=== PATIENT | female | born 1975 | race Caucasian/White ===

== ENCOUNTER 2019-09-13 15:39 | Inpatient (IN) | payer BC ==
[~2019-09-13] VITALS: Ht 175.3 cm; Wt 81.6 kg
[2019-09-13] VITALS (8 sets, daily range): BP systolic 111–144; BP diastolic 66–78
--- NOTE | 2019-09-13 15:51 | Emergency Room Report ---
History of Present Illness General Chief Complaint: abdominal pain Source: Patient Present Illness HPI Patient is a 43-year-old female presents after increased lower abdominal pain. Acute onset of symptoms. 48 hours with the pain. Denies any nausea or vomiting. Pain had worsened gradually over time. Prior history of C- section.Pain is worse with ambulation and movement. Severe pain. Patient attempted acupuncture without any improvement.Patient denies being . Allergies: Coded Allergies: No Known Allergies (Unverified , 09/13/19) Patient History Past Medical History: see triage record Reviewed Nursing Documentation: PMH: Agreed; PSxH: Agreed Review of Systems All Other Systems: negative except mentioned in HPI Physical Exam Sp02 EP Interpretation: reviewed, normal General Appearance: normal inspection, well appearing, no apparent distress, alert, GCS 15 Head: atraumatic ENT: normal ENT inspection, hearing grossly normal, normal voice Neck: normal inspection, full range of motion, supple, no bony tend Respiratory: normal inspection, lungs clear, normal breath sounds, no respiratory distress, no retraction, no wheezing Cardiovascular #1: regular rate, rhythm, no edema Gastrointestinal: normal inspection, normal bowel sounds, soft, no guarding, no hernia, tenderness - Guarding in the right lower quadrant, positive Rovsing sign Genitourinary: no CVA tenderness Musculoskeletal: normal inspection, back normal, normal range of motion Neurologic: alert, motor strength/tone normal, licensed insurance agent III-XII nml as tested, oriented x3, responsive, speech normal, normal inspection Psychiatric: normal inspection, judgement/insight normal, mood/affect normal Skin: other - bruising to right side of abdomen Medical Decision Making Diagnostic Impression: Primary Impression: Acute appendicitis ER Course Patient presented for abdominal pain. Differential diagnoses included ischemic bowel, appendicitis, perforated viscus, abdominal aortic aneurysm, inferior myocardial infarction, viral gastroenteritis among others.Because patient's complexity imaging studies, and laboratory testing ordered. White blood count was Noted to be elevated. Patient was given IV pain medications as well as antibiotic. CT of the abdomen pelvis showed performed at radiology center showed 10 mm appendix with inflammatory changes see radiology report for full details. Dr. Arroyo was contacted for surgical consult. Dr. Olvera was contacted for [facility] for inpatient management. Labs Test 09/13/19 16:00 White Blood Count 20.8 K/UL (4.8-10.8) Red Blood Count 4.73 M/UL (4.20-5.40) Hemoglobin 14.2 G/DL (12.0-16.0) Hematocrit 42.4 % (37.0-47.0) Mean Corpuscular Volume 90 FL (80-99) Mean Corpuscular Hemoglobin 29.9 PG (27.0-31.0) Mean Corpuscular Hemoglobin Concent 33.4 G/DL (32.0-36.0) Red Cell Distribution Width 13.2 % (11.6-14.8) Platelet Count 282 K/UL (150-450) Mean Platelet Volume 7.4 FL (6.5-10.1) Neutrophils (%) (Auto) % (45.0-75.0) Lymphocytes (%) (Auto) % (20.0-45.0) Monocytes (%) (Auto) % (1.0-10.0) Eosinophils (%) (Auto) % (0.0-3.0) Basophils (%) (Auto) % (0.0-2.0) Differential Total Cells Counted 100 Neutrophils % (Manual) 89 % (45-75) Lymphocytes % (Manual) 7 % (20-45) Monocytes % (Manual) 4 % (1-10) Eosinophils % (Manual) 1 % (0-3) Basophils % (Manual) 0 % (0-2) Band Neutrophils 0 % (0-8) Platelet Estimate Adequate Platelet Morphology Normal Red Blood Cell Morphology Normal Prothrombin Time 10.1 SEC (9.30-11.50) Prothromb Time International Ratio 0.9 (0.9-1.1) Activated Partial Thromboplast Time 31 SEC (23-33) Urine HCG, Qualitative Negative (NEGATIVE) Sodium Level 137 MMOL/L (136-145) Potassium Level 4.1 MMOL/L (3.5-5.1) Chloride Level 100 MMOL/L (98-107) Carbon Dioxide Level 27 MMOL/L (21-32) Anion Gap 10 mmol/L (5-15) Blood Urea Nitrogen 5 mg/dL (7-18) Creatinine 0.9 MG/DL (0.55-1.30) Estimat Glomerular Filtration Rate > 60 mL/min (>60) Glucose Level 115 MG/DL (74-106) Calcium Level 9.0 MG/DL (8.5-10.1) Total Bilirubin 0.6 MG/DL (0.2-1.0) Aspartate Amino Transf (AST/SGOT) 14 U/L (15-37) Alanine Aminotransferase (ALT/SGPT) 23 U/L (12-78) Alkaline Phosphatase 51 U/L (46-116) Total Protein 7.7 G/DL (6.4-8.2) Albumin 4.1 G/DL (3.4-5.0) Globulin 3.6 g/dL Albumin/Globulin Ratio 1.1 (1.0-2.7) Status: improved Disposition: ADMITTED INPATIENT Condition: Stable Christian Gutierrez MD Sep 13, 2019 15:51
[2019-09-13] MEDS ORDERED: Morphine Sulfate 4mg/ml Inj (IV USE ONLY) IVP ONE (16:00)
[2019-09-13] MEDS ORDERED: Piperacillin/Tazobactam 3.375 GM in NS 110 ML IVPB ONE (16:00)
[2019-09-13] MEDS ORDERED: Bupivacaine w/Epi 0.5% 30ml Vial INJ ONE (16:17)
[2019-09-13] MEDS ORDERED: Succinylcholine 20mg/ml 10ml vial ONE (16:18)
[2019-09-13] MEDS ORDERED: Rocuronium Bromide 100mg/10ml Inj IV ONE (16:18)
[2019-09-13] MEDS ORDERED: Bacitracin 50000 Units Vial ONE (16:18)
[2019-09-13 16:24] LABS: HEMATOCRIT 42.4 % (37.0-47.0); HEMOGLOBIN 14.2 G/DL (12.0-16.0); MEAN CORPUSCULAR VOLUME 90 FL (80-99); PLATELET COUNT 282 K/UL (150-450); RED BLOOD COUNT 4.73 M/UL (4.20-5.40); RED CELL DISTRIBUTION WIDTH 13.2 % (11.6-14.8); WHITE BLOOD COUNT 20.8 K/UL (4.8-10.8)
[2019-09-13] MEDS ORDERED: CYTOMEL5 MCG ORAL (16:29)
[2019-09-13] MEDS ORDERED: SYNTHROID75 MCG ORAL (16:29)
[2019-09-13 16:35] LABS: ANION GAP 10 mmol/L (5-15); BLOOD UREA NITROGEN 5 mg/dL (7-18); CARBON DIOXIDE 27 MMOL/L (21-32); CHLORIDE 100 MMOL/L (98-107); CREATININE 0.9 MG/DL (0.55-1.30); POTASSIUM 4.1 MMOL/L (3.5-5.1); SODIUM 137 MMOL/L (136-145)
[2019-09-13 16:37] LABS: INR 0.9 (0.9-1.1)
[2019-09-13 16:39] LABS: ALANINE AMINOTRANSFERASE 23 U/L (12-78); ALBUMIN 4.1 G/DL (3.4-5.0); ALBUMIN/GLOBULIN RATIO 1.1 (1.0-2.7); ALKALINE PHOSPHATASE 51 U/L (46-116); ASPARTATE AMINO TRANSFERASE 14 U/L (15-37); BILIRUBIN,TOTAL 0.6 MG/DL (0.2-1.0)
--- NOTE | 2019-09-13 16:44 | Consultation ---
History of Present Illness General Date patient seen: Sep 13, 2019 Reason for Hospitalization: Abdominal Pain Present Illness HPI 43 year old female otherwise healthy presented with abdominal pain. states friday morning began to have generalized cramping abdominal pain that woke her up. improved and thought it was resolving but pain worse today. went to PCP for evaluation and differential of abdominal pain considered in detail therefore CT was performed outpatient. PCP astutely identified appendicitis and she was instructed to go to ED for evaluation and surgical care. came to [facility] ED. no n/v/f/c. wbc 20k. surgery called to evaluate. discussed with PCP Dr. Samy Cool. discussed with ED. plan management discussed with hospitalist. hx cs ection for twins which are now 5yo. Allergies: Coded Allergies: No Known Allergies (Unverified , 09/13/19) COVID-19 Screening Contact w/high risk pt: No Recent Travel to affected area: No Experienced COVID-19 symptoms?: No Medication History Scheduled Levothyroxine Sodium* (Synthroid*), 75 MCG ORAL DAILY, (Reported) Liothyronine Sodium* (Cytomel*), 5 MCG ORAL DAILY, (Reported) Patient History History Provided By: Patient, Medical Record, PMD Healthcare decision maker N Resuscitation status Advanced Directive on File Past Medical/Surgical History Past Medical/Surgical History: (1) Acute appendicitis Review of Systems Review of Symptoms General ROS: no weight loss or fever Psychological ROS: no depression or mood changes, no memory loss Ophthalmic ROS: no visual changes or eye irritation ENT ROS: no nasal congestion, hearing loss, dizziness Allergy and Immunology ROS: no allergic symptoms or urticaria Hematological and Lymphatic ROS: no swollen glands, unusual bleeding or bruising Endocrine ROS: no polyuria, polydipsia, weight changes, temperature intolerance Respiratory ROS: no cough, shortness of breath, or wheezing Cardiovascular ROS: no chest pain or dyspnea on exertion Gastrointestinal ROS: ++ abdominal pain, no bright red blood in stool. Musculoskeletal ROS: no myalgias or arthralgias Neurological ROS: no TIA or stroke symptoms Dermatological ROS: no new or changing skin lesions, rashes or pruritis Physical Exam Physical Exam General appearance: alert, cooperative, no distress, appears stated age Head: Normocephalic, without obvious abnormality, atraumatic Eyes: conjunctivae/corneas clear. PERRL, EOM's intact. Fundi benign Throat: Lips, mucosa, and tongue normal. Teeth and gums normal Neck: supple, symmetrical, trachea midline, no adenopathy, thyroid: not enlarged, symmetric, no tenderness/mass/nodules, no carotid bruit and no JVD Lungs: clear to auscultation bilaterally Heart: regular rate and rhythm, S1, S2 normal, no murmur, click, rub or gallop Abdomen: soft, RLQ tender. Bowel sounds normal. No masses, no organomegaly Extremities: extremities normal, atraumatic, no cyanosis or edema Pulses: 2+ and symmetric Skin: Skin color, texture, turgor normal. No rashes or lesions Neurologic: Grossly normal Last 24 Hour Vital Signs Date Time Temp Pulse Resp B/P (MAP) Pulse Ox O2 Delivery O2 Flow Rate FiO2 09/13/19 15:57 110 18 Room Air 09/13/19 15:57 98.2 18 118/78 99 Room Air 09/13/19 15:50 98.2 110 18 118/78 (91) 99 Room Air Laboratory Tests Test 09/13/19 16:00 White Blood Count 20.8 K/UL (4.8-10.8) H Red Blood Count 4.73 M/UL (4.20-5.40) Hemoglobin 14.2 G/DL (12.0-16.0) Hematocrit 42.4 % (37.0-47.0) Mean Corpuscular Volume 90 FL (80-99) Mean Corpuscular Hemoglobin 29.9 PG (27.0-31.0) Mean Corpuscular Hemoglobin Concent 33.4 G/DL (32.0-36.0) Red Cell Distribution Width 13.2 % (11.6-14.8) Platelet Count 282 K/UL (150-450) Mean Platelet Volume 7.4 FL (6.5-10.1) Neutrophils (%) (Auto) % (45.0-75.0) Lymphocytes (%) (Auto) % (20.0-45.0) Monocytes (%) (Auto) % (1.0-10.0) Eosinophils (%) (Auto) % (0.0-3.0) Basophils (%) (Auto) % (0.0-2.0) Differential Total Cells Counted 100 Neutrophils % (Manual) 89 % (45-75) H Lymphocytes % (Manual) 7 % (20-45) L Monocytes % (Manual) 4 % (1-10) Eosinophils % (Manual) 1 % (0-3) Basophils % (Manual) 0 % (0-2) Band Neutrophils 0 % (0-8) Platelet Estimate Adequate Platelet Morphology Normal Red Blood Cell Morphology Normal Prothrombin Time 10.1 SEC (9.30-11.50) Prothromb Time International Ratio 0.9 (0.9-1.1) Activated Partial Thromboplast Time 31 SEC (23-33) Urine HCG, Qualitative Negative (NEGATIVE) Sodium Level 137 MMOL/L (136-145) Potassium Level 4.1 MMOL/L (3.5-5.1) Chloride Level 100 MMOL/L (98-107) Carbon Dioxide Level 27 MMOL/L (21-32) Anion Gap 10 mmol/L (5-15) Blood Urea Nitrogen 5 mg/dL (7-18) L Creatinine 0.9 MG/DL (0.55-1.30) Estimat Glomerular Filtration Rate > 60 mL/min (>60) Glucose Level 115 MG/DL (74-106) H Calcium Level 9.0 MG/DL (8.5-10.1) Total Bilirubin 0.6 MG/DL (0.2-1.0) Aspartate Amino Transf (AST/SGOT) 14 U/L (15-37) L Alanine Aminotransferase (ALT/SGPT) 23 U/L (12-78) Alkaline Phosphatase 51 U/L (46-116) Total Protein 7.7 G/DL (6.4-8.2) Albumin 4.1 G/DL (3.4-5.0) Globulin 3.6 g/dL Albumin/Globulin Ratio 1.1 (1.0-2.7) Height (Feet): 5 Height (Inches): 9.00 Weight (Pounds): 180 Assessment/Plan Problem List: (1) Acute appendicitis Assessment & Plan: 43F with acute appendicitis afebrile HD stable leukocytosis 20k CT reviewed and consistent with acute uncomplicated appy exam with RLQ focal tenderness and rebound. npo iv fluids iv abx consent rapid COVID to OR for lap vs open appy thank you ICD Codes: K35.80 - Unspecified acute appendicitis SNOMED: [id number] Carlos Arroyo Sep 13, 2019 16:44
--- NOTE | 2019-09-13 16:45 | Pre-Procedure Note/Attestation ---
Pre-Procedure Note/Attestation Complete Prior to Procedure Procedure Narrative: laparoscopic appendectomy possible open Indications for Procedure Pre-Operative Diagnosis: acute appendicitis Attestation I attest that I discussed the nature of the procedure; its benefits; risks and complications; and alternatives (and the risks and benefits of such alternatives ), prior to the procedure, with the patient (or the patient's legal circulation sales representative). I attest that, if there was a reasonable possibility of needing a blood transfusion, the patient (or the patient's legal circulation sales representative) was given the [facility] standardized written summary, pursuant to the Aditya Mike Blood Safety Act ([place] Health and Safety Code # 1645, as amended). I attest that I re-evaluated the patient just prior to the surgery and that there has been no change in the patient's H&P, except as documented below: Carlos Arroyo Sep 13, 2019 16:45
--- NOTE | 2019-09-13 16:58 | History and Physical ---
History of Present Illness General Date patient seen: Sep 13, 2019 Time patient seen: 15:52 Reason for Hospitalization: Abdominal Pain Present Illness HPI 43-year-old female with past medical history of , D&C, presents for diffuse abdominal pain described as sharp 10 out of 10 pain that began early Friday morning. Pain has continued to worsen. Patient was imaged with a CT scan at outside facility that shows evidence of appendicitis, no free fluid in the pelvis noted, ovarian cyst noted. Liver 12 cm. Patient admits to nausea no vomiting, no diarrhea. Patient also denies fevers, chills, cough, shortness of breath. In regards to evaluation for medical clearance, patient states that she was active prior to presentation. Patient was able to exercise, go upstairs, without any shortness of breath or chest pain. Patient denies any prior history of asthma, diabetes, hypertension, smoking, COPD. Patient also denies any adverse reactions to anesthesia. Surgeries none Medications none Family history: Patient admits to heart disease in her uncle Social history: 2 twins, recently per report Allergies: Coded Allergies: No Known Allergies (Unverified , 09/13/19) COVID-19 Screening Contact w/high risk pt: No Recent Travel to affected area: No Experienced COVID-19 symptoms?: No Medication History Scheduled Levothyroxine Sodium* (Synthroid*), 75 MCG ORAL DAILY, (Reported) Liothyronine Sodium* (Cytomel*), 5 MCG ORAL DAILY, (Reported) Patient History Healthcare decision maker N Resuscitation status Advanced Directive on File Review of Systems All Other Systems: negative except mentioned in HPI Physical Exam Last 24 Hour Vital Signs Date Time Temp Pulse Resp B/P (MAP) Pulse Ox O2 Delivery O2 Flow Rate FiO2 09/13/19 15:57 110 18 Room Air 09/13/19 15:57 98.2 18 118/78 99 Room Air 09/13/19 15:50 98.2 110 18 118/78 (91) 99 Room Air Laboratory Tests Test 09/13/19 16:00 White Blood Count 20.8 K/UL (4.8-10.8) H Red Blood Count 4.73 M/UL (4.20-5.40) Hemoglobin 14.2 G/DL (12.0-16.0) Hematocrit 42.4 % (37.0-47.0) Mean Corpuscular Volume 90 FL (80-99) Mean Corpuscular Hemoglobin 29.9 PG (27.0-31.0) Mean Corpuscular Hemoglobin Concent 33.4 G/DL (32.0-36.0) Red Cell Distribution Width 13.2 % (11.6-14.8) Platelet Count 282 K/UL (150-450) Mean Platelet Volume 7.4 FL (6.5-10.1) Neutrophils (%) (Auto) % (45.0-75.0) Lymphocytes (%) (Auto) % (20.0-45.0) Monocytes (%) (Auto) % (1.0-10.0) Eosinophils (%) (Auto) % (0.0-3.0) Basophils (%) (Auto) % (0.0-2.0) Differential Total Cells Counted 100 Neutrophils % (Manual) 89 % (45-75) H Lymphocytes % (Manual) 7 % (20-45) L Monocytes % (Manual) 4 % (1-10) Eosinophils % (Manual) 1 % (0-3) Basophils % (Manual) 0 % (0-2) Band Neutrophils 0 % (0-8) Platelet Estimate Adequate Platelet Morphology Normal Red Blood Cell Morphology Normal Prothrombin Time 10.1 SEC (9.30-11.50) Prothromb Time International Ratio 0.9 (0.9-1.1) Activated Partial Thromboplast Time 31 SEC (23-33) Urine HCG, Qualitative Negative (NEGATIVE) Sodium Level 137 MMOL/L (136-145) Potassium Level 4.1 MMOL/L (3.5-5.1) Chloride Level 100 MMOL/L (98-107) Carbon Dioxide Level 27 MMOL/L (21-32) Anion Gap 10 mmol/L (5-15) Blood Urea Nitrogen 5 mg/dL (7-18) L Creatinine 0.9 MG/DL (0.55-1.30) Estimat Glomerular Filtration Rate > 60 mL/min (>60) Glucose Level 115 MG/DL (74-106) H Calcium Level 9.0 MG/DL (8.5-10.1) Total Bilirubin 0.6 MG/DL (0.2-1.0) Aspartate Amino Transf (AST/SGOT) 14 U/L (15-37) L Alanine Aminotransferase (ALT/SGPT) 23 U/L (12-78) Alkaline Phosphatase 51 U/L (46-116) Total Protein 7.7 G/DL (6.4-8.2) Albumin 4.1 G/DL (3.4-5.0) Globulin 3.6 g/dL Albumin/Globulin Ratio 1.1 (1.0-2.7) Microbiology Date/Time Source Procedure Growth Status 09/13/19 16:00 Nasopharynx SARS-CoV-2 RdRp Gene Assay - Final Complete Height (Feet): 5 Height (Inches): 9.00 Weight (Pounds): 180 Medications Current Medications Medications (Trade) Dose Ordered Sig/[place] Route PRN Reason Start Time Stop Time Status Last Admin Dose Admin Sodium Chloride 1,000 ml @ 75 mls/hr [id number] IVLG 09/13/19 16:45 10/13/19 16:44 Objective Narrative GENERAL: No acute distress, appears in pain HEENT: NCAT, non-icteric eyes, pupils PERRLA Neck: No cervical lymphadenopathy, trachea midline CV: Regular rate and rhythm, no murmurs rubs or gallops RESP: Clear to auscultation bilaterally, no wheezes/rhonchi/crackles ABD: Diffusely tender, soft, bowel sounds present EXT: Normal muscle tone, +5/5 muscle strength NEURO: No obvious deficits, alert and oriented x3 Assessment/Plan Assessment/Plan: 43-year-old female with past medical history of , D&C, presents for diffuse abdominal pain described as sharp 10 out of 10 pain that began early Friday morning. Pain has continued to worsen. Patient was imaged with a CT scan at outside facility that shows evidence of appendicitis, no free fluid in the pelvis noted, ovarian cyst noted. #Appendicitis #Leukocytosis #No pain -CT scan from outside facility consistent with appendicitis -Leukocytosis of 20 -IV antibiotics perioperatively -IV fluids -Surgery consult, appreciate recommendations: Plan for surgery today -Pain control #Ovarian cyst -Noted on CT scan, follow-up as outpatient with pelvic ultrasound #History of D&C -History of DVT P PX: SCDs, hold chemical DVT prophylaxis for surgery Patient is full code The time of my note may not reflect the time of my patient encounter. More than 74 minutes on patient's case with 18 minutes spent on care coordination and counseling. Discussions with Dr. Cool PCP, surgery, ER physician. Patti Olvera DO Sep 13, 2019 16:58
[2019-09-13] MEDS ORDERED: LR 1000ml ONE (17:00)
[2019-09-13] MEDS ORDERED: NS Irrig 1000ml ONE (17:00)
[2019-09-13] MEDS ORDERED: Neostigmine 1mg/ml 10ml Inj ONE (17:00)
[2019-09-13] MEDS ORDERED: Sterile Water Irrig 1000ml IRRIG ONE (17:00)
[2019-09-13] MEDS ORDERED: Sodium Chloride 10ml vial INJ ONE (17:19)
[2019-09-13] MEDS ORDERED: Lidocaine 1% MPF 10mg/ml 5ml ONE (17:19)
[2019-09-13] MEDS ORDERED: fentaNYL 100 mcg/2 mL IV ONE (17:20)
[2019-09-13] MEDS ORDERED: LR 1000ml 1,000 ML IVLG SCH (17:31)
--- NOTE | 2019-09-13 17:34 | Anethesia Preoperative Eval ---
Anesthesia Pre-op PMH/ROS General Date of Evaluation: Sep 13, 2019 Time of Evaluation: 17:16 Anesthesiologist: Bolivar ASA Score: ASA 2 - Emergency Mallampati Score Class I : Soft palate, uvula, fauces, pillars visible Class II: Soft palate, uvula, fauces visible Class III: Soft palate, base of uvula visible Class IV: Only hard plate visible Mallampati Classification: Class I Surgeon: Dina Diagnosis: Abd Pain Surgical Procedure: Laproscopic Appendectomy Anesthesia History: none Family History: no anesthesia problems Allergies: Coded Allergies: No Known Allergies (Unverified , 09/13/19) Medications: see eMAR Patient NPO?: Yes Past Medical History Other: obesity PSxH Narrative: Other Sxs Anesthesia Pre-op Phys. Exam Physician Exam Last Vital Signs Date Time Temp Pulse Resp B/P (MAP) Pulse Ox O2 Delivery O2 Flow Rate FiO2 09/13/19 16:56 98.2 09/13/19 15:57 110 18 Room Air 09/13/19 15:57 118/78 99 Constitutional: NAD Neurologic: CN 2-12 intact Cardiovascular: RRR Respiratory: CTA Gastrointestinal: S/NT/ND Airway Exam Mallampati Score: Class II MO: full ROM: full Teeth: intact Anesthesia Pre-op A/P Labs Hematology Test 09/13/19 16:00 White Blood Count 20.8 K/UL (4.8-10.8) H Red Blood Count 4.73 M/UL (4.20-5.40) Hemoglobin 14.2 G/DL (12.0-16.0) Hematocrit 42.4 % (37.0-47.0) Mean Corpuscular Volume 90 FL (80-99) Mean Corpuscular Hemoglobin 29.9 PG (27.0-31.0) Mean Corpuscular Hemoglobin Concent 33.4 G/DL (32.0-36.0) Red Cell Distribution Width 13.2 % (11.6-14.8) Platelet Count 282 K/UL (150-450) Mean Platelet Volume 7.4 FL (6.5-10.1) Neutrophils (%) (Auto) % (45.0-75.0) Lymphocytes (%) (Auto) % (20.0-45.0) Monocytes (%) (Auto) % (1.0-10.0) Eosinophils (%) (Auto) % (0.0-3.0) Basophils (%) (Auto) % (0.0-2.0) Differential Total Cells Counted 100 Neutrophils % (Manual) 89 % (45-75) H Lymphocytes % (Manual) 7 % (20-45) L Monocytes % (Manual) 4 % (1-10) Eosinophils % (Manual) 1 % (0-3) Basophils % (Manual) 0 % (0-2) Band Neutrophils 0 % (0-8) Platelet Estimate Adequate Platelet Morphology Normal Red Blood Cell Morphology Normal Coagulation Test 09/13/19 16:00 Prothrombin Time 10.1 SEC (9.30-11.50) Prothromb Time International Ratio 0.9 (0.9-1.1) Activated Partial Thromboplast Time 31 SEC (23-33) Chemistry Test 09/13/19 16:00 Sodium Level 137 MMOL/L (136-145) Potassium Level 4.1 MMOL/L (3.5-5.1) Chloride Level 100 MMOL/L (98-107) Carbon Dioxide Level 27 MMOL/L (21-32) Anion Gap 10 mmol/L (5-15) Blood Urea Nitrogen 5 mg/dL (7-18) L Creatinine 0.9 MG/DL (0.55-1.30) Estimat Glomerular Filtration Rate > 60 mL/min (>60) Glucose Level 115 MG/DL (74-106) H Calcium Level 9.0 MG/DL (8.5-10.1) Total Bilirubin 0.6 MG/DL (0.2-1.0) Aspartate Amino Transf (AST/SGOT) 14 U/L (15-37) L Alanine Aminotransferase (ALT/SGPT) 23 U/L (12-78) Alkaline Phosphatase 51 U/L (46-116) Total Protein 7.7 G/DL (6.4-8.2) Albumin 4.1 G/DL (3.4-5.0) Globulin 3.6 g/dL Albumin/Globulin Ratio 1.1 (1.0-2.7) Urine Test Test 09/13/19 16:00 Urine HCG, Qualitative Negative (NEGATIVE) Risk Assessment & Plan Assessment: ASA 2E Plan: GA, SED, GlideScope Status Change Before Surgery: No Pre-Antibiotics Dru Gram Ancef IV Given Within 1 Hr of Incision: Yes Time Given: 17:41 Clemente Lutz MD Sep 13, 2019 17:34
[2019-09-13] MEDS ORDERED: DiphenhydrAMINE 50mg/ml Inj IVP PRN (17:45)
[2019-09-13] MEDS ORDERED: Metoclopramide 10mg/2ml Inj IVP PRN (17:45)
[2019-09-13] MEDS ORDERED: Labetalol 5mg/ml 20ml vial IV PRN (17:45)
[2019-09-13] MEDS ORDERED: HYDROcodone/Acetamin 5/325 tab ORAL PRN ×2 (17:45→18:45)
[2019-09-13] MEDS ORDERED: LORazepam Inj 2mg/ml 1ml IV PRN (17:45)
[2019-09-13] MEDS ORDERED: fentaNYL 100 mcg/2 mL IV PRN (17:45)
[2019-09-13] MEDS ORDERED: Acetaminophen (Non formulary) 100 ML IV ONE (17:45)
[2019-09-13] MEDS ORDERED: HYDROcodone/Acetamin 7.5/325 tab ORAL PRN (17:45)
[2019-09-13] MEDS ORDERED: Meperidine 25mg/0.5ml Inj (FOR RIGORS ONLY) IV PRN (17:45)
[2019-09-13] MEDS ORDERED: oxyCODONE HCL/Acetaminophen 5/325mg ORAL PRN (17:45)
[2019-09-13] MEDS ORDERED: Ketorolac 30mg Inj IV PRN ×3 (17:45→18:45)
[2019-09-13] MEDS ORDERED: Hydromorphone 0.5mg/0.5ml inj IVP PRN (17:45)
[2019-09-13] MEDS ORDERED: Midazolam 2mg/2ml Inj IVP PRN (17:45)
[2019-09-13] MEDS ORDERED: Atropine Sulfate 0.4mg/ml inj IVP PRN (17:45)
[2019-09-13] MEDS ORDERED: NS Irrig 1000ml IRRIG ONE (17:53)
--- NOTE | 2019-09-13 17:57 | Immediate Post-Op Evaluation ---
Immediate Post-Op Evalulation Immediate Post-Op Evalulation Procedure: Laparoscopic Appendectomy Date of Evaluation: Sep 13, 2019 Time of Evaluation: 19:04 IV Fluids: 900 LR Blood Products: 0 Estimated Blood Loss: 10 Urinary Output: 0 Blood Pressure Systolic: 116 Blood Pressure Diastolic: 72 Pulse Rate: 92 Respiratory Rate: 16 O2 Sat by Pulse Oximetry: 100 Temperature (Fahrenheit): 98.3 Pain Score (1-10): 2 Nausea: No Vomiting: No Complications 0 Patient Status: awake, reacts, patent, extubated, none Hydration Status: adequate Dru Gram Ancef IV Given Within 1 Hr of Incision: Yes Time Given: 17:41 Clemente Lutz MD Sep 13, 2019 17:57
[2019-09-13] MEDS ORDERED: Glycopyrrolate 0.2mg/ml 1ml Vial ONE (18:20)
--- NOTE | 2019-09-13 18:42 | Brief Operative Note ---
Immediate Post Operative Note Operative Note Pre-op Diagnosis: acute appendicitis Procedure: lap appy lap solange Post-op Diagnosis: same as pre-op Surgeon: lawrence Anesthesiologist: deep Anesthesia: general, local Specimen: yes Complications: none Condition: stable Fluids: see records Estimated Blood Loss: minimal Drains: none Implant(s) used?: No Carlos Arroyo Sep 13, 2019 18:42
[2019-09-13] MEDS ORDERED: HYDROcodone/Acetamin 10/325 tab ORAL PRN (18:45)
[2019-09-13] MEDS ORDERED: Milk of Magnesia 30ml Ud ORAL PRN (18:45)
[2019-09-13] MEDS ORDERED: Sennosides 8.6mg tab ORAL PRN (18:45)
[2019-09-13] MEDS ORDERED: Morphine Sulfate 2mg/ml Inj(IV/IM USE ONLY) IVP PRN (18:45)
[2019-09-13] MEDS ORDERED: DiphenhydrAMINE 25mg Tab ORAL PRN (18:45)
[2019-09-13] MEDS ORDERED: Morphine Sulfate 4mg/ml Inj (IV USE ONLY) IVP PRN (18:45)
--- NOTE | 2019-09-13 18:51 | 48 Hour Post Anesthesia Eval ---
Post Anesthesia Evaluation Procedure: Laparoscopic Appendectomy Date of Evaluation: Sep 13, 2019 Time of Evaluation: 21:13 Blood Pressure Systolic: 118 0: 73 Pulse Rate: 94 Respiratory Rate: 18 Temperature (Fahrenheit): 98.4 O2 Sat by Pulse Oximetry: 100 Airway: patent Nausea: No Vomiting: No Pain Intensity: 2 Hydration Status: adequate Cardiopulmonary Status: Stable Mental Status/LOC: patient returned to baseline Follow-up Care/Observations: 0 Post-Anesthesia Complications: 0 Follow-up care needed: N/A Clemente Lutz MD Sep 13, 2019 18:51
[2019-09-13] MEDS: Piperacillin/Tazobactam 3.375 GM in NS 110 ML IVPB SCH (22:03)
--- NOTE | 2019-09-13 22:15 | Operative Note - Dictated ---
DATE OF OPERATION: 09/13/2019 PREOPERATIVE DIAGNOSIS: Acute appendicitis. POSTOPERATIVE DIAGNOSES: 1. Acute suppurative appendicitis. 2. Intra-abdominal adhesions from prior . OPERATION PERFORMED: 1. Laparoscopic appendectomy. 2. Laparoscopic lysis of adhesions. ATTENDING SURGEON: Carlos Arroyo MD. TIRE SERVICE TECHNICIAN: None. ANESTHESIOLOGIST: Clemente Lutz MD. ANESTHESIA: General SANDER OPERATOR plus local. ESTIMATED BLOOD LOSS: Minimal. IV FLUIDS: Please see anesthesia records. COMPLICATIONS: None. DRAINS: None. COUNTS: Sponge and needle counts correct x2. WOUND CLASSIFICATION: Class 3. ANTIBIOTICS: Zosyn IV given one hour prior to cut time in the emergency department. SPECIMENS: Appendix sent to pathology for review. INDICATIONS FOR PROCEDURE: This is a very pleasant 43-year-old female who saw her primary care physician earlier today complaining of abdominal pain, was astutely identified to have acute appendicitis, sent for a CT scan, which confirmed and consistent with acute nonperforated uncomplicated appendicitis. Patient was sent from her primary care physician, Dr. Samy Cool's office to the emergency department at [facility] for evaluation at which time was seen by myself and identified by clinical examination, radiological, and gathered information to be consistent with acute appendicitis. Surgery was indicated and recommended. Patient had leukocytosis of 30,000 and was given antibiotics. Laboratories were reviewed. Patient was scheduled for laparoscopic appendectomy after risks, benefits, and alternatives were discussed in detail in the emergency department. OPERATIVE NOTE: Patient was taken to the operating room and placed on operating table in supine position with left arm tucked. All bony prominences were well padded. SCDs placed. Preoperative time-out taken identifying the patient, procedure, operative staff, and surgical staff. Antibiotic, Zosyn IV given in the emergency department. No Serrano was inserted given patient voided prior to entering the operating room. General anesthesia was induced. Patient was intubated. The abdomen was clipped, prepped, and draped in standard surgical fashion. Local anesthetic was infiltrated throughout the incision sites for patient's comfort throughout the procedure. An infraumbilical incision was made using a fresh #11 scalpel and carried down to the fascia, which was elevated and incised. Entry into the abdomen was obtained using open Nathalie technique without complication. A 12 mm Nathalie trocar was inserted and abdomen was insufflated to 12 to 15 mmHg. Patient tolerated the insufflation well. Laparoscope was then inserted and the abdomen was inspected. The right upper quadrant, the liver, gallbladder looked otherwise normal and healthy and portions of the colon that could be identified were otherwise without complication. The left upper quadrant, left lobe of the liver, and stomach were otherwise healthy without complication. In the left lower quadrant, the portion of the bowel that could be visualized and inguinal region were otherwise normal. In the right lower quadrant, there was a small indirect inguinal hernia clearly identified opening measuring approximately a centimeter with no bowel, omental, or other contents within the hernia. In the pelvis, there were omental adhesions to the anterior abdominal wall from patient's prior . These required lysis of adhesions in order to proceed with the procedure. A left lower quadrant abdominal port site 12 mm was placed under direct visualization. Laparoscopic vita were used and the omental adhesions to the anterior abdominal wall were dissected down and laparoscopic lysis of adhesions were performed until the omentum can be mobilized and the pelvis and right lower quadrant better visualized to proceed with surgery. A 5 mm suprapubic port was placed under direct visualization after this was completed without complication. Laparoscopic graspers were used. Patient was placed in reverse Trendelenburg with left side down. The omentum was tracked towards the left upper quadrant. The cecum was identified and the teniae followed down to the base where the base of the appendix was noted to be dilated and inflamed. The remainder of the appendix was identified and clearly acute appendicitis was identified and suppurative as there was murky rind around the appendix and surrounding tissues. The appendix was gently dissected down and the window was identified between the appendix and the mesoappendix at the base. A laparoscopic linear stapler was used and the base was divided without complication. The mesoappendix was gently dissected down in a similar fashion. The laparoscopic linear stapler was used vascular load and it was divided. Hemostasis was achieved following this from the oozing both staple lines using laparoscopic clips. Once this was completed, the abdomen was focally irrigated and suctioned until clear. Hemostasis noted. No abnormalities. No complications identified. In the pelvis, right ovary was cystic in nature. Left ovary otherwise benign. The uterus was normal. The pelvis was irrigated and suctioned clear from murky fluid. The remainder of the abdomen was inspected. No intra-abdominal pathology otherwise was identified and no pre or intra procedure complications noted. The appendix was then placed into the endoscopic retrieval bag and removed from the abdomen using left lower quadrant port site. At this time, we began the conclusion of our procedure. Secondary trocars removed under visualization followed by the umbilical trocar site and the abdomen was desufflated. The umbilical trocar site fascia and left lower quadrant port site fascia were reapproximated using [id number] Vicryl sutures. Skin incisions were approximated using 4-0 Monocryl subcuticular interrupted sutures. Skin glue and Steri-Strips were applied. Patient tolerated the procedure well, was extubated, and taken to postanesthetic care unit in stable condition. Carlos Arroyo M.D. DR: NIMESH JOB#: [id number] CC:
[2019-09-14] VITALS: BP 113/70
[2019-09-14] MEDS: Morphine Sulfate 2mg/ml Inj(IV/IM USE ONLY) IVP PRN ×2 (03:11→07:09)
[2019-09-14 04:00] VITALS: BP 104/71
[2019-09-14 05:26] LABS: HEMATOCRIT 39.3 % (37.0-47.0); HEMOGLOBIN 12.9 G/DL (12.0-16.0); MEAN CORPUSCULAR VOLUME 91 FL (80-99); PLATELET COUNT 248 K/UL (150-450); RED CELL DISTRIBUTION WIDTH 12.5 % (11.6-14.8)
[2019-09-14] MEDS: Piperacillin/Tazobactam 3.375 GM in NS 110 ML IVPB SCH (06:21)
[2019-09-14 06:33] LABS: BLOOD UREA NITROGEN 6 mg/dL (7-18); CALCIUM 8.8 MG/DL (8.5-10.1); CARBON DIOXIDE 25 MMOL/L (21-32); CREATININE 0.9 MG/DL (0.55-1.30)
[2019-09-14 06:58] LABS: CHLORIDE 102 MMOL/L (98-107); POTASSIUM 4.3 MMOL/L (3.5-5.1); SODIUM 133 MMOL/L (136-145)
[2019-09-14 08:00] VITALS: BP 121/75
--- NOTE | 2019-09-14 08:33 | Discharge Summary ---
Discharge Summary Hospital Course Date of Admission Sep 13, 2019 at 19:40 Date of Discharge 09/14/2019, 12:00 PM Admitting Diagnosis ACUTE APPENDICITIS HPI Khalida Ortiz is a 43 year old female who was admitted on Sep 13, 2019 at 19: 40 for Acute Appendicitis. General: NAD, A&O x 3, sitting up in bed comfortably HEENT: NCAT, EOMi, MMM CV: RRR, no murmurs, rubs, or gallops Pulm: CTAB, No wheezes, rhonchi, or rales, no accessory muscle usage or conversational dyspnea GI: Soft, nontender, nondistended, bowel sounds present, surgical incision sites C/D/I Ext: No lower extremity edema bilaterally Skin: no rashes lesions or ulcers Msk: Joints symmetrical in upper extremity and lower extremity bilaterally, no joint swelling. Neuro: CN 2-12 grossly intact bilaterally, no focal signs. Hospital Course Patient was admitted for diffuse abdominal pain, 12/24 that began early Friday a.m. pain worsened, patient went to the ED where CT scan revealed evidence of appendicitis. Patient underwent appendectomy on 09/12 with no issues. Patient next day recovering well, pain well controlled on medications, patient ambulating to restroom without difficulty and tolerating breakfast. Patient with WBC 14 this a.m., expected due to postop, incentive spirometry was encouraged. Patient afebrile, no S OB at this time. Patient instructed to follow-up with PCP and surgeon as outpatient for close follow-up. Patient DC in stable condition. D/c planning >35 mins. Discharge Condition Upon Discharge: stable Discharge Vital Signs Last Vital Signs Date Time Temp Pulse Resp B/P (MAP) Pulse Ox O2 Delivery O2 Flow Rate FiO2 09/14/19 08:00 98.8 89 20 121/75 (90) 99 09/13/19 21:00 Nasal Cannula 2.0 Discharge Disposition Patient was discharged to home. Chau Oliveira M.D. Sep 14, 2019 08:33
[2019-09-14] MEDS ORDERED: Docusate 100mg cap ORAL SCH (09:00)
[2019-09-14 12:00] VITALS: BP 123/78
--- NOTE | 2019-09-14 12:54 | General Progress Note ---
Progress Note Progress Note doing great post op feels better tolerating diet wounds c/d/i d/c rx written f/u given thank you Carlos Arroyo Sep 14, 2019 12:54
== END 2019-09-14 12:45 | disposition home or self-care (01) | DRG 337 ==
LOC: EMR 16:06 → EDBEDREQ 16:12 → SUR 16:20 → 3E 19:40
PROC: 0DTJ4ZZ Resection of Appendix, Percutaneous Endoscopic Approach (ICD-10-PCS; principal; 2019-09-13 16:30)
PROC: 0DNU4ZZ Release Omentum, Percutaneous Endoscopic Approach (ICD-10-PCS; principal; 2019-09-13 16:30)
DX: K35.80 Unspecified acute appendicitis (principal); K66.0 Peritoneal adhesions (postprocedural) (postinfection); N83.209 Unspecified ovarian cyst, unspecified side
CPT/HCPCS: 36415; 80048; 80053; 81025; 85007; 85025; 85610; 85730; 94003; 94150; 96365; 96375; 99285; J2180; J2405; J2710; J7030; U0002